=== PATIENT | female | born 1955 | race Caucasian/White ===

== ENCOUNTER 2024-12-16 04:21 | Emergency (ER) | payer MEDICARE, OTHER ==
[~2024-12-16] VITALS: Ht 162.6 cm; Wt 70.0 kg
[2024-12-16 04:23] VITALS: O2SAT 99
[2024-12-16 05:22] LABS: CLARITY URINE CLEAR (CLEAR); COLOR URINE YELLOW (YELLOW); GLUCOSE URINE NEGATIVE (NEGATIVE); KETONES URINE TRACE (NEGATIVE); LEUKOCYTE ESTERASE URINE TRACE (NEGATIVE); NITRITE URINE NEGATIVE (NEGATIVE); OCCULT BLOOD URINE 2+ (NEGATIVE); PH URINE 5.5 (4.5-8.0); PROTEIN URINE TRACE (NEGATIVE); SPECIFIC GRAVITY URINE 1.027 (1.005-1.030)
[2024-12-16 05:53] LABS: SQUAMOUS EPITHELIAL CELL URINE 1+ /lpf (RARE/1+)
[2024-12-16 05:57] LABS: BACTERIA URINE 1+; WBC URINE 0-2 /hpf (0-2)
[2024-12-16 06:11] VITALS: TEMP 37; O2SAT 96
[2024-12-16] MEDS: KETOROLAC 30MG/ML VIAL IM STA (06:36)
[2024-12-16 06:37] VITALS: BP 123/67; PULSE 101; RESP 18
[2024-12-16] MEDS: HYDROCODONE/ACETAMINOPHEN 5/325MG TABLET PO STA (06:37)
[2024-12-16 07:08] LABS: CHLORIDE 101 mEq/L (98-107); POTASSIUM 4.6 mEq/L (3.5-5.1); SODIUM 139 mEq/L (136-145)
[2024-12-16 07:09] LABS: CARBON DIOXIDE 29 mEq/L (21-32)
[2024-12-16 07:10] LABS: CALCIUM 9.9 mg/dL (8.7-10.4)
[2024-12-16 07:14] LABS: CREATININE 0.7 mg/dL (0.6-1.0)
[2024-12-16 07:15] LABS: GLUCOSE 118 mg/dL (70-105); UREA NITROGEN BLOOD 14 mg/dL (9-23)
[2024-12-16 07:16] LABS: ALANINE AMINOTRANSFERASE 12 IU/L (10-49); ALBUMIN 4.2 g/dL (3.2-4.8); ASPARTATE AMINOTRANSFERASE 18 IU/L (<34)
[2024-12-16 07:17] LABS: BILIRUBIN DIRECT 0.1 mg/dL (<=3.0); BILIRUBIN TOTAL 0.6 mg/dL (0.1-1.0)
[2024-12-16 07:18] LABS: PROTEIN TOTAL 7.3 g/dL (6.0-8.3)
[2024-12-16 07:36] LABS: PROTHROMBIN TIME 10.3 sec (9.6-11.0)
[2024-12-16 08:22] LABS: BASOPHILS % 0.2 % (0.0-2.0); EOSINOPHILS % 0.5 % (0.0-5.0); HEMOGLOBIN. 13.7 g/dL (12.0-16.0); LYMPHOCYTES % 12.2 % (20.0-50.0); MEAN CORPUSCULAR HEMOGLOBIN 27.7 pg (28.0-32.0); MEAN CORPUSCULAR HGB CONC 32.6 g/dL (31.0-37.0); MEAN PLATELET VOLUME 9.5 fl (7.4-10.4); MONOCYTES % 6.7 % (2.0-8.0); NEUTROPHILS % 80.4 % (40.0-76.0); PLATELET 246 x1000/uL (130-400); RED BLOOD CELL COUNT 4.94 mill/uL (4.2-5.4); RED CELL DISTRIBUTION WIDTH 13.7 % (11.6-14.6); WHITE BLOOD COUNT 11.7 x1000/uL (4.5-11.0)
[2024-12-16] MEDS ORDERED: NITR-87 MT (11:13)
== END 2024-12-16 11:56 | disposition home or self-care (01) ==
LOC: ER 04:21
DX: N39.0 Urinary tract infection, site not specified (principal)
CPT/HCPCS: 99285; 74176; 80076; 80048; 81003; 83690; 85025; 85610; 36415; 96372; J1885